=== PATIENT | male | born 1960 | race Asian ===

== ENCOUNTER 2017-06-21 20:17 | Emergency (ER) | payer BC ==
[~2017-06-21] VITALS: Ht 167.6 cm; Wt 73.0 kg
[~2017-06-21 20:17] MED LIST: CIPR500T4 PO; HYDR-762 PO; METR500T PO; ZOF8 PO
[2017-06-21 20:19] VITALS: Ht 167.6 cm; Wt 73.0 kg
--- NOTE | 2017-06-21 21:28 | ERD ---
ER Documentation Chief Complaint Chief Complaint c/o abd pain x 1 day. (+) chills. Hx of diverticulitis. HPI This is a 56-year-old male that presents to the emergency department complaining of 24 hours of persistent left lower quadrant pain. He states the pain is a sharp shooting pain, 8 out of 10 in intensity. Yesterday evening he had a tactile fever with shaking and chills. He denies any frequency urgency or dysuria. He denies any shortness of breath at rest or exertion. He did not take any analgesic medication. He states the pain does not radiate to his back. He denies any gross hematuria. He states he has had similar pain in the past when he was diagnosed with diverticulitis roughly 1 year ago. He denies any diarrhea or constipation. He has no chest pain or pressure that radiates to the neck arm back or jaw and no antipyretics were taken prior to arrival. ROS All systems reviewed and are negative except as per history of present illness. Medications Home Meds Active Scripts Ondansetron Hcl* (Zofran* ODT) 8 mg -ODT Tab.disper, 8 MG PO Q6 Y for NAUSEA AND /OR VOMITING, #10 TAB Prov:HORACE CORTÉS MD 01/07/16 Hydrocodone Bit-Acetaminophen* ([place]*) 10-325 Mg Tablet, 1 TAB PO Q6 Y for PAIN , #10 TAB Prov:HORACE CORTÉS MD 01/07/16 Ciprofloxacin Hcl* (Ciprofloxacin Hcl*) 500 Mg Tablet, 500 MG PO BID for 10 Days , TAB Prov:HORACE CORTÉS MD 01/07/16 Metronidazole* (Flagyl*) 500 Mg Tablet, 500 MG PO QID for 10 Days, TAB Prov:HORACE CORTÉS MD 01/07/16 Allergies Allergies: Coded Allergies: No Known Drug Allergy (Verified Allergy, Unknown, 09/14/14) PMhx/Soc History of Surgery: No Anesthesia Reaction: No Hx Neurological Disorder: No Hx Respiratory Disorders: No Hx Cardiac Disorders: No Hx Psychiatric Problems: No Hx Miscellaneous Medical Probl: No (gout) Hx Alcohol Use: Yes Hx Substance Use: No Hx Tobacco Use: No Physical Exam Vitals Vital Signs Date Time Temp Pulse Resp B/P Pulse Ox O2 Delivery O2 Flow Rate FiO2 06/21/17 20:19 98.2 79 18 143/78 98 Physical Exam Constitutional:Well-developed. Well-nourished. HEENT:Normocephalic. Atraumatic.Pupils were equal round reactive to light. Moist mucous membranes.No tonsillar exudates. Neck: No nuchal rigidity. No lymphadenopathy. No posterior cervical spine tenderness or step-offs. Respiratory: Not using accessory muscles of respiration.Lungs were clear to auscultation bilaterally. No rhonchi. No rales. No wheezing. Cardiovascular: Regular rate regular rhythm.No murmurs. No rubs were appreciated.S1, S2 normal. Distal pulses are palpable 2+ bilaterally. GI: Abdomen was soft. Tenderness in the left lower quadrant. Non Distended. No pulsatile abdominal masses or bruits. No rebound. No guarding. Bowel sounds were present and normal. Muscle skeletal: Full range of motion of both the upper and lower extremities bilaterally.Normal muscle tone.No assymetrical calf tenderness or swelling. Skin: No petechia, no purpura. No lesions on the palms or the soles of the feet. No maculopapular rash. NEURO: Patient was alert, awake, orientated x3.No facial droop. Gait observed and normal with no ataxia.Speech had regular rate and rhythm. No focal neurological deficits. Result Diagram: 06/21/17214406/21/172144 Results 24 hrs Laboratory Tests Test 06/21/17 21:45 White Blood Count 13.610^3/ul Red Blood Count 4.4910^6/ul Hemoglobin 14.0g/dl Hematocrit 40.3% Mean Corpuscular Volume 89.8fl Mean Corpuscular Hemoglobin 31.2pg Mean Corpuscular Hemoglobin Concent 34.7g/dl Red Cell Distribution Width 13.5% Platelet Count 47153^3/UL Mean Platelet Volume 9.5fl Neutrophils % 68.4% Lymphocytes % 17.9% Monocytes % 10.8% Eosinophils % 2.1% Basophils % 0.4% Nucleated Red Blood Cells % 0.0/100WBC Neutrophils # 9.310^3/ul Lymphocytes # 2.410^3/ul Monocytes # 1.510^3/ul Eosinophils # 0.310^3/ul Basophils # 0.110^3/ul Nucleated Red Blood Cells # 0.010^3/ul Prothrombin Time 12.8Sec Prothrombin Time Ratio 1.0 INR International Normalized Ratio 0.95 Activated Partial Thromboplast Time 26.7Sec Urine Color YELLOW Urine Clarity CLEAR Urine pH 5.0 Urine Specific [place] 1.020 Urine Ketones NEGATIVEmg/dL Urine Nitrite NEGATIVEmg/dL Urine Bilirubin NEGATIVEmg/dL Urine Urobilinogen NEGATIVEmg/dL Urine Leukocyte Esterase NEGATIVELeu/ul Urine Hemoglobin NEGATIVEmg/dL Urine Glucose NEGATIVEmg/dL Urine Total Protein NEGATIVEmg/dl Sodium Level 143mmol/L Potassium Level 3.8mmol/L Chloride Level 103mmol/L Carbon Dioxide Level 30mmol/L Anion Gap 14 Blood Urea Nitrogen 22mg/dl Creatinine 1.21mg/dl Glucose Level 111mg/dl Calcium Level 9.4mg/dl Total Bilirubin 0.6mg/dl Direct Bilirubin 0.00mg/dl Indirect Bilirubin 0.6mg/dl Aspartate Amino Transf (AST/SGOT) 27IU/L Alanine Aminotransferase (ALT/SGPT) 41IU/L Alkaline Phosphatase 66IU/L Troponin I < 0.012ng/ml Total Protein 7.9g/dl Albumin 4.2g/dl Globulin 3.70g/dl Albumin/Globulin Ratio 1.13 Amylase Level 121U/L Lipase 178U/L Current Medications Medications (Trade) Dose Ordered Sig/Rishi Route PRN Reason Start Time Stop Time Status Last Admin Dose Admin Sodium Chloride (NS) 1,000 ml @ 1,000 mls/hr Q1H STAT IV 06/21/17 21:29 06/21/17 22:28 DC 06/21/17 21:50 Morphine Sulfate (morphine) 4 mg ONCE STAT IV 06/21/17 21:29 06/21/17 21:30 DC 06/21/17 21:50 Ondansetron HCl 4 mg 4 mg ONCE STAT IV 06/21/17 21:29 06/21/17 21:30 DC 06/21/17 21:49 Sodium Chloride (NS) 100 ml @ ud STK-MED ONCE .ROUTE 06/21/17 22:32 06/21/17 22:33 DC 06/21/17 22:40 Iohexol (Omnipaque 300mg/ ml) 150 ml STK-MED ONCE .ROUTE 06/21/17 22:32 06/21/17 22:33 DC 06/21/17 22:41 Procedures/MDM This patient presented to the emergency department with abdominal pain and was seen and evaluated by myself. My differential diagnosis included but was not limited to abdominal aortic aneurysm, appendicitis, pancreatitis, perforated peptic ulcer, perforated viscus, Boerhaaves syndrome or visceral pain such as diverticulitis, DKA, esophagitis, hepatitis or bowel obstruction. The patient was placed on a athletic monitor, continuous pulse oximetry, and IV access was established by nursing staff. The patient was given intravenous morphine and Zofran. I did feel is necessary to obtain a CT scan of the patient 's abdomen to rule out diverticulitis or an surgical abdomen such as perforation. The patient however had no peritoneal signs on physical exam. CT scan of the abdomen reviewed by the radiologist myself indicated the followin. Recurrent acute sigmoid diverticulitis. An underlying colon tumor cannot be totally excluded. 2. Mild retained stool within the colon without obstruction. 3. No CT evidence for appendicitis. 4. Minimal left inguinal hernia containing fat. 5. Hepatic steatosis. 6. Degenerative changes within the spine. Obtained a 12-lead EKG tracing to rule out atypical myocardial infarction. 12 Lead EKG tracing ordered and reviewed by myself showed: Normal sinus rhythm of 75 bpm and no arrhythmia. TX interval normal. QRS duration normal. No ST segment elevation No ST segment depression. No changes consistent with acute ischemia. The patient had leukocytosis. He was able to tolerate oral intake, nontoxic in appearance and afebrile. The patient said he felt comfortable being treated on outpatient basis and therefore will be sent home with a prescription of ciprofloxacin and Flagyl and analgesic medication. I did inform the patient of the findings of the CT scan and the importance of following up with his PCP as I could not rule out a neoplastic process in the colon. The patient was discharged home in fair condition. They were instructed to return to the emergency department at any time if there was any worsening of their condition. The patient stated they would follow up with their PCP in the next 24-48 hours to initiate a suitable medication regimen under the care of their PCP as well as to allow their PCP to monitor any drug reactions. The patient was discharged home with prescriptions after they gave informed consent to the new medication. They were also fully informed by myself on the adverse effects and adverse drug interactions in order to provide adequate safeguards to prevent possible adverse reactions to medications. Departure Diagnosis: Primary Impression: Diverticulitis Condition: Fair MCKENNA TIDWELL Jun 21, 2017 21:28
[2017-06-21] MEDS ORDERED: SOD CHLORIDE 0.9% 1,000 ML IV STA (21:29)
[2017-06-21] MEDS ORDERED: morphine 4 MG/ML VIAL IV STA (21:29)
[2017-06-21] MEDS ORDERED: ONDANSETRON 4 MG INJ IV STA (21:29)
[2017-06-21 21:58] LABS: BASOPHIL # 0.1 10^3/ul (0.0-0.1); BASOPHILS % 0.4 % (0.0-2.0); EOSINOPHILS # 0.3 10^3/ul (0.0-0.5); EOSINOPHILS % 2.1 % (0.0-7.0); HEMATOCRIT 40.3 % (42.0-52.0); LYMPHOCYTES # 2.4 10^3/ul (0.8-2.9); LYMPHOCYTES % 17.9 % (15.0-51.0); MEAN CORPUSCULAR HEMOGLOBIN 31.2 pg (29.0-33.0); MEAN CORPUSCULAR HGB CONC 34.7 g/dl (32.0-37.0); MEAN CORPUSCULAR VOLUME 89.8 fl (82.0-101.0); MEAN PLATELET VOLUME 9.5 fl (7.4-10.4); MONOCYTE # 1.5 10^3/ul (0.3-0.9); MONOCYTES % 10.8 % (0.0-11.0); NEUTROPHIL # 9.3 10^3/ul (1.6-7.5); NEUTROPHILS % 68.4 % (39.0-77.0); PLATELET COUNT 298 10^3/UL (140-415); RED BLOOD COUNT 4.49 10^6/ul (4.70-6.10); RED CELL DISTRIBUTION WIDTH 13.5 % (11.5-14.5); WHITE BLOOD COUNT 13.6 10^3/ul (4.8-10.8)
[2017-06-21 22:10] LABS: ADD UMIC NO; UR ASCORBIC ACID NEGATIVE (NEGATIVE); UR BILIRUBIN (Dip) NEGATIVE (NEGATIVE); UR BLOOD (Dip) NEGATIVE (NEGATIVE); UR CLARITY CLEAR (CLEAR); UR COLOR YELLOW (YELLOW); UR GLUCOSE (Dip) NEGATIVE (NEGATIVE); UR KETONES (Dip) NEGATIVE (NEGATIVE); UR LEUKOCYTE ESTERASE (Dip) NEGATIVE Leu/ul (NEGATIVE); UR NITRITE (Dip) NEGATIVE (NEGATIVE); UR TOTAL PROTEIN (Dip) NEGATIVE (NEGATIVE); UR UROBILINOGEN (Dip) NEGATIVE (NEGATIVE)
[2017-06-21 22:14] LABS: INR 0.95; PROTIME 12.8 Sec (11.9-14.9)
[2017-06-21 22:15] LABS: PARTIAL THROMBOPLASTIN TIME 26.7 Sec (25.0-35.0)
[2017-06-21 22:21] LABS: ALANINE AMINOTRANSFERASE 41 IU/L (13-69); ALBUMIN 4.2 g/dl (3.3-4.9); ALBUMIN/GLOBULIN RATIO 1.13; ALKALINE PHOSPHATASE 66 IU/L (42-121); AMYLASE 121 U/L (11-123); ANION GAP 14 (8-16); ASPARTATE AMINO TRANSFERASE 27 IU/L (15-46); BILIRUBIN,INDIRECT 0.6 mg/dl (0-1.1); BILIRUBIN,TOTAL 0.6 mg/dl (0.2-1.3); BLOOD UREA NITROGEN 22 mg/dl (7-20); CALCIUM 9.4 mg/dl (8.4-10.2); CARBON DIOXIDE 30 mmol/L (21-31); CHLORIDE 103 mmol/L (97-110); CREATININE 1.21 mg/dl (0.61-1.24); GLUCOSE 111 mg/dl (70-220); POTASSIUM 3.8 mmol/L (3.5-5.1); SODIUM 143 mmol/L (135-144); TOTAL PROTEIN 7.9 g/dl (6.1-8.1)
[2017-06-21 22:32] LABS: TROPONIN-I < 0.012 ng/ml (0.00-0.12)
[2017-06-21] MEDS ORDERED: IOHEXOL 300MG/ML 150 ML BTL ONE (22:32)
[2017-06-21] MEDS ORDERED: SOD CHLORIDE 0.9% 100 ML ONE (22:32)
--- NOTE | 2017-06-21 22:58 | RADRPT ---
PROCEDURE: CT ABDOMEN/PELVIS WITH CONTRAST CLINICAL INDICATION: 56-year-old male with abdominal pain. TECHNIQUE: The study was performed utilizing a [employer] VCT 64-slice CT scanner. Direct axia l sections were obtained through the abdomen and pelvis with the use of nonionic intravenous contras t material. Sagittal and coronal reformations were obtained. One or more of the following dose reduc tion techniques were utilized: automated exposure control, adjustment of the mA and/or kV according to patient's size and/or use of iterative reconstruction technique. DICOM images are available. The images were reviewed on a PACS workstation. CTD/vol = 11.1 mGy; Total Exam DLP = 654.5 mGy-cm. COMPARISON: None. FINDINGS: The lung bases are unremarkable. There is no evidence for significant pleural effusion. The liver has a normal size and contour. There is diffuse decreased density throughout the liver consistent wi th fatty infiltration. There is a small hypodense focus within the right lobe of the liver on axial image 3-27 measuring approximately 5 x 5 x 5 mm which appears cystic No intrahepatic nor extrahepati c biliary ductal dilatation is seen. The gallbladder demonstrates no wall thickening nor pericholecy stic fluid. No biliary stones are evident. The pancreas is without areas of abnormal attenuation or contrast enhancement. This spleen is identified and has a normal size without abnormal density or c ontrast enhancement. The adrenal glands are unremarkable. The kidneys are functional bilaterally wit hout abnormal density. No hydroureteronephrosis nor nephroureterolithiasis is evident. The urinary b ladder contains urine. There is mild retained stool identified within the colon without obstruction. There is thickening of the sigmoid colon with multiple diverticula as well as mild surr ounding inflammatory changes consistent with acute sigmoid diverticulitis. There is no evidence for bowel obstruction. The appendix is visualized and is without edema or surrounding inflammatory reac tion. There is no significant free fluid. There is a minimal left inguinal hernia containing fat. T he aortoiliac vessels are without aneurysmal dilatation. Mild degenerative changes are present withi n the spine. IMPRESSION: 1. Recurrent acute sigmoid diverticulitis. An underlying colon tumor cannot be totally excluded. 2. Mild retained stool within the colon without obstruction. 3. No CT evidence for appendicitis. 4. Minimal left inguinal hernia containing fat. 5. Hepatic steatosis. 6. Degenerative changes within the spine. .Brigido Stewart MD, MD Date Time Electronically viewed and signed by .Brigido Stewart MD, MD on 06/21/2017 22:57 ./
[2017-06-21] MEDS ORDERED: IBUP800T25 PO (23:14)
[2017-06-21] MEDS ORDERED: METR500T14 PO (23:14)
[2017-06-21] MEDS ORDERED: CIPR500T4 PO (23:14)
[2017-06-21 23:28] VITALS: BP 131/80; PULSE 75; RESP 18; TEMP 98.2
== END 2017-06-21 23:29 | disposition home or self-care (01) ==
LOC: E/R 20:17
DX: K57.32 Diverticulitis of large intestine without perforation or abscess without bleeding (principal); R07.9 Chest pain, unspecified
CPT/HCPCS: 74177; 80053; 81003; 82150; 83690; 84484; 85025; 85610; 85730; 93005; 96374; 96375; 99285; J2270; J2405; J7030; Q9967